=== PATIENT | male | born 1975 | race Caucasian/White ===

== ENCOUNTER → 2018-05-29 14:15 | Outpatient (CLI) | payer OTHER, SELFPAY ==
[2018-05-29 07:24] VITALS: BMI 36.6
== END ==
PROVIDERS: Referring Provider Physician Assistant Surgical; Visit Provider Physician Assistant Surgical
DX: J02.9 Acute pharyngitis, unspecified (principal)
CPT/HCPCS: 87081

== ENCOUNTER → 2019-05-04 | Outpatient (CLI) | payer OTHER, SELFPAY ==
[2018-07-08 07:02] VITALS: BMI 36.6
[2019-05-04 09:06] LABS: Bacteria 0 SEEN /hpf (None Seen); Mucous, Urine 0 SEEN /hpf (<or=2+); White Blood Cells 0 SEEN /hpf (0-5)
[2019-05-04 10:30] LABS: Absolute Neutrophil Count 3.8 X10^3/uL (2.0-7.7); Basophil# 0.07 X10^3/uL; Basophil% 0.9 % (0-1); Eosinophil# 0.32 X10^3/uL; Eosinophils% 4.2 % (0-5); Hematocrit 51.6 % (40-54); Hemoglobin 17.2 g/dL (13.0-16.5); Lymphocyte % 35.1 % (19-41); Mean Corp Hgb Conc 33.3 g/dL (32-36); Mean Corpuscular Hgb 29.6 pg (27.0-32.0); Mean Corpuscular Volume 88.7 fL (80-94); Mean Platelet Vol. 10.3 fl (6.2-12.0); Monocyte# 0.79 X10^3/uL; Monocyte% 10.3 % (0-10); NRBC Flagged by Analyzer 0 % (0-5); Neutrophil # 3.79 X10^3/uL (2.7-7.7); Neutrophil % 49.1 % (47-70); Platelet Count 228 K/mm3 (150-450); RBC Distribution Width CV 14.2 % (11.6-14.6); RBC Distribution Width SD 43.6 fl (35.1-43.9); Red Blood Count 5.82 M/mm3 (4.6-6.2); White Blood Count 7.7 K/mm3 (4.4-11.0)
[2019-05-04 10:35] LABS: Color, Urine Yellow (Yellow); Glucose, Dipstick Normal (Normal); Ketone-Dipstick Negative (Negative); Leukocyte Esterase-Dipstick Negative /ul (Negative); Nitrite-Dipstick Negative (Negative); Occult Blood-Urine 50 /ul (Negative); Protein-Dipstick 30 mg/dl (Negative); Specific Gravity, Urine 1.015 (1.002-1.030); Urine Bilirubin Dipstick Negative (Negative); Urine Clarity Sl. Cloudy (Clear); Urine Urobilinogen Normal (Normal); Urine pH 6.5 (5.0 - 8.0)
[2019-05-04 10:42] LABS: Red Blood Cells-Urine 0-5 SEEN /hpf (0-5); Squamous Epithelial Cells - UA 0-5 SEEN /hpf (0-5)
[2019-05-04 11:10] LABS: ALB/GLOB Ratio 1.2 RATIO (0.9-2.4); AST(SGOT) 26 U/L (15-37); Alanine Aminotransfer ALT/SGPT 57 U/L (16-61); Alkaline Phosphatase 111 U/L (45-117); Anion Gap 6 (5-15); BUN 18 mg/dL (7-18); BUN/Creat Ratio 14.8 RATIO (10-20); Calcium,Total 9.3 mg/dL (8.5-10.1); Chloride 109 mmol/L (98-107); Cholesterol 142 mg/dL (200); Creatinine, Serum 1.22 mg/dL (0.70-1.30); EST Glomerular Filtration Rate 69 mL/min (>60); Est Glom Filt Rate - Afr Amer 84 mL/min (>60); Globulin 3.3 g/dL (2.2-4.2); Glucose 80 mg/dL (74-106); High Density Lipoprotein 43 mg/dL; Potassium 4.5 mmol/L (3.5-5.1); Protein, Total 7.3 g/dL (6.4-8.2); Sodium Level 141 mmol/L (136-145); Thyroid Stim Hormone (TSH) 2.66 uIU/mL (0.358-3.74); Triglycerides 68 mg/dL; Very Low Density Lipoprotein 14 mg/dL (5-40)
[2019-05-05 14:20] LABS: Ferritin 107 ng/mL (26-388); Iron 86 ug/dL (65-175); Iron Binding Capacity,Total 334 ug/dL (250-450); PERCENT IRON SATURATION 25.7 % (15.0-55.0)
== END | disposition home or self-care (01) ==
LOC: MFPLAB 09:04
PROVIDERS: PCP Family Medicine; Referring Provider Family Medicine; Visit Provider Family Medicine
DX: Z00.00 Encounter for general adult medical examination without abnormal findings (principal); D75.1 Secondary polycythemia
CPT/HCPCS: 36415; 80053; 80061; 81001; 82728; 83540; 83550; 84443; 85025

== ENCOUNTER 2019-11-06 15:17 | Emergency (ER) | payer OTHER, SELFPAY ==
[2018-07-08 07:02] VITALS: BMI 36.6
[2019-11-06 15:18] VITALS: BP 187/95; PULSE 90; RESP 18; TEMP 36.8; O2SAT 96; BMI 38.0
--- NOTE | 2019-11-06 15:28 | ED.DCSUM_ITS ---
History of Present Illness Chief Complaint: Laceration Informant: Patient Onset: Today Current Severity: Mild Maximum Severity: Moderate Narrative: Patient presents with left hand laceration. [place] and cut his left index finger with a razor knife. He is right-hand dominant. He is not sure of his last tetanus update. Denies any other significant past medical history. Past Medical History - Allergies and Home Meds Allergies/Adverse Reactions: Allergies No Known Allergies Allergy (Unverified 11/06/19 15:20) Primary Care Physician: Dre Means MD [Primary Care Provider] - Past Medical History: None Lives: Spouse/ Significant Other Smoking Status: Never smoker Review of Systems General: Denies: Chills, Fever Eyes: Denies: Visual changes - bilaterally ENT: Denies: Bilateral ear pain Cardiovascular: Denies: Chest pain Respiratory: Denies: Dyspnea, Cough Gastrointestinal: Denies: Abdominal pain Musculoskeletal: Reports: Extremity Pain Skin: Reports: Wounds Neurological: Denies: Parasthesia Hematologic: Denies: Easy bruising, Easy bleeding Allergy: Denies: Uticaria Physical Exam Vital Signs/Narrative: Vital Signs Temp Pulse Resp BP Pulse Ox 11/06/19 15:18 98.2 F 90 18 187/95 H 96 Inital Vital Signs reviewed: Yes General: Well nourished, Well developed Head: Normocephalic ENT: Moist mucous membranes Cardiovascular: Regular rate, Regular rhythm Respiratory: No distress, CTA bilaterally Abdomen: Soft, Nontender Extremities: - - 2 cm laceration along the radial aspect of the index MCP joint. Full range of motion of all digits. Normal sensation distally. Neurological: Alert, Oriented x3, Normal Strength, Normal Sensation Psychological: Normal affect Diagnostic/Tx/Re-eval - Medical Decision Making Tetanus update is provided. 3 cc 1% lidocaine are used locally for anesthesia. Wound is cleansed and irrigated. 4 simple interrupted sutures of 5-0 nylon are placed with good approximation. Dressing is applied and wound care is discu ssed. Patient have sutures removed in 1 week. Procedures - Lacerations No standard instances Length: 0.79 in Depth: Sub Q Shape: Linear Prep: Crhis-[place] Laceration repair: Lidocaine, Local Number of Sutures/Dario: 4 Suture Information: Ethilon, Simple, 5-0 ED Disposition - Plan for ED Patient: Disposition: Home or Assisted Living Diagnosis: Laceration of left hand Instructions: ED Laceration Hand Referrals: Dre Means MD [Primary Care Provider] - 7 Days for suture removal
[2019-11-06] MEDS: Diphth,Pertuss(Acell),Tet Vac 0.5 ML Vial IM (15:39)
[2019-11-06 16:12] VITALS: BP 137/84; PULSE 72; RESP 16; O2SAT 99
== END 2019-11-06 16:15 | disposition home or self-care (01) ==
PROVIDERS: Emergency Provider Emergency Medicine; PCP Family Medicine
DX: S61.211A Laceration without foreign body of left index finger without damage to nail, initial encounter (principal); Z23 Encounter for immunization; W26.0XXA Contact with knife, initial encounter; Y93.89 Activity, other specified; Y92.79 Other farm location as the place of occurrence of the external cause; Y99.0 Civilian activity done for income or pay
CPT/HCPCS: 12001; 90471; 90715; 99284

== ENCOUNTER 2021-07-22 19:30 | Emergency (ER) | payer OTHER, SELFPAY ==
[2021-07-22 19:31] VITALS: BP 152/91; PULSE 82; RESP 18; TEMP 36.4; O2SAT 99; BMI 37.0
--- NOTE | 2021-07-22 20:23 | EKG12_ITS ---
Test Reason : ABD PAIN Blood Pressure : / mmHG Vent. Rate : 073 BPM Atrial Rate : 073 BPM P-R Int : 130 ms QRS Dur : 072 ms QT Int : 378 ms P-R-T Axes : 032 010 012 degrees QTc Int : 416 ms Normal sinus rhythm Normal ECG Confirmed by TAB JOHNS, ELOISA ([id number]), news editor EARL CABAN ([id number]) on 07/24/2021 7:18:37 AM Referred By: MICHELLE Confirmed By:ELOISA BARTH MD
--- NOTE | 2021-07-22 20:24 | EDS_ITS ---
HPI History of Present Illness Chief Complaint: Abd Pain Narrative Narrative: Patient presents with right upper quadrant and epigastric pain that started earlier this morning. He woke up with this pain. He has no fever chills he has decreased appetite but does not have any nausea or vomiting. No diarrhea or constipation. No lower abdominal pain. No flank pain. [facility] Home Medications NK 11/06/19 [History Last Taken Unknown] Allergy/AdvReac Type Severity Reaction Status Date / Time No Known Allergies Allergy Verified 07/22/21 19:31 Social History Smoking Status: Never smoker ROS ROS ED ROS Narrative Past medical history: Reviewed Medications: Reviewed Social history: Noncontributory Review of systems: All systems negative except as indicated General: No fever Eyes: No visual changes ENT: No upper airway congestion, normal voice Neck: No neck pain Cardiovascular: No chest pain Respiratory: No shortness of breath or cough Gastrointestinal: Abdominal pain as in HPI Genitourinary: No dysuria Musculoskeletal: Denies myalgias no difficulty with ambulation Skin: No rash Neurological: No memory loss, confusion or any focal weakness Psych: No recent behavioral changes Hematologic: No easy bleeding or easy bruising EXAM Physical Exam Narrative Exam Narrative: Physical exam General: Well nourished, Well developed, No Acute Distress Head: Normocephalic, Atraumatic Eyes: Conjunctiva not pale ENT: Moist mucous membranes Neck: Supple, Nontender, No lymphadenopathy Cardiovascular: Regular rate, Regular rhythm Respiratory: No distress, CTA bilaterally Abdomen: Soft, there is some right upper quadrant tenderness, he has a negative Barrera's. He has some epigastric tenderness. No guarding or rebound. No lower abdominal pain or any pain at McBurney's. Back: Nontender, Normal Inspection. Negative for: CVA tenderness Extremities: Nontender, No edema Skin: Normal color, No rash Neurological: Alert, Normal Strength, Normal Sensation Psychological: Normal affect Const Vital Signs: 07/22/21 19:31 Temperature 97.6 F L Temperature Source Temporal Pulse Rate 82 Respiratory Rate 18 Blood Pressure 152/91 H Blood Pressure Mean 111 Pulse Ox 99 Oxygen Delivery Method Room Air MDM MDM MDM Narrative Medical decision making narrative: Patient has some inflammation around the proximal colon. Unsure about the etiology of this but patient appears well, I will discharge with GI follow-up if anything changes he is to return Lab Data Labs: Laboratory Results - last 24 hr 07/22/21 07/22/21 20:25 20:25 WBC 9.9 RBC 5.71 Hgb 16.7 H Hct 50.6 MCV 88.6 MCH 29.2 MCHC 33.0 RDW Std Deviation 44.7 H RDW Coeff of Sylvie 13.8 Plt Count 238 MPV 9.9 Immature Gran % (Auto) 0.300 Neut % (Auto) 48.5 Lymph % (Auto) 36.2 [place] % (Auto) 9.3 Eos % (Auto) 4.8 Baso % (Auto) 0.9 Absolute Neuts (auto) 4.8 Absolute Lymphs (auto) 3.59 Nucleated RBC % 0 Sodium 140 Potassium 3.8 Chloride 109 H Carbon Dioxide 28.0 Anion Gap 3 L BUN 16 Creatinine 1.32 H Estim Creat Clear Calc 78.38 Est GFR (MDRD) Af Amer 76 Est GFR (MDRD) Non-Af 62 BUN/Creatinine Ratio 12.1 Glucose 90 Calcium 8.7 Total Bilirubin 0.30 Direct Bilirubin 0.13 AST 24 ALT 56 Alkaline Phosphatase 107 Total Protein 7.0 Albumin 3.4 Globulin 3.6 Lipase 110 Radiography Diagnostic Testing: Clinical Impression(s) from Imaging Studies Abdomen/Pelvis CT 07/22/21 20:24 IMPRESSION: Moderate inflammatory change anterior to the distal one half of the descending colon. Fatty infiltration of the liver. Probable sparing of fatty infiltration or less likely hemangioma 2 cm in diameter adjacent to the body of the gallbladder. Sigmoid diverticulosis. Electronically Signed: Rommel Reddy MD, ANNABEL at 21:10 EDT , Discharge Plan Triage Chief Complaint: Abd Pain ED Provider: Jensen Oden Dx/Rx/DC Orders Clinical Impression: Abdominal pain, Colitis Instructions: ED Understanding Colitis Prescriptions: No Action NK RF: 0 Primary Care Provider: Dre Means Referrals: Dre Means MD [Primary Care Provider] - Friend,JulesDO [STAFF PHYSICIAN] - 2 Days Disposition Disposition: Home, Self Care
--- NOTE | 2021-07-22 20:24 | CT_ITS ---
STUDY: CT ABDOMEN AND PELVIS WITHOUT CONTRAST REASON FOR EXAM: Male, 45 years old. abdominal pain RADIATION DOSAGE (If Supplied By Facility): CTDIvol = ( 19.86 ) mGy, DLP = ( 1190.81 ) mGycm TECHNIQUE: Transaxial images were obtained from the dome of the diaphragm to the symphysis pubis without oral contrast, and without intravenous contrast. Sagittal and coronal images were reconstructed. Individualized dose optimization techniques were used for this CT. COMPARISON: None. FINDINGS: The visualized lung bases demonstrate mild dependent atelectasis.. The visualized portions of the heart are within normal limits. Hyperdensity anterior to the body of the gallbladder within the liver. This measures 2 cm transverse. This could represent sparing of fatty infiltration. Other etiologies such as hemangioma would be an additional consideration. Normal gallbladder and extrahepatic biliary system. Normal spleen. Normal pancreas. Normal bilateral adrenal glands. Normal right kidney. Normal left kidney. Normal visualized stomach. Normal small intestine. Anterior to the distal one half of the ascending colon there is moderate pericolonic inflammatory change. There is no evidence of discrete abscess or fluid collection. The appendix is normal in appearance without evidence of mural thickening or periappendiceal inflammatory change. Sigmoid diverticulosis. Mild dependent atelectasis posterior basilar segments both lower lobes. There is mild sigmoid diverticulosis. There is no evidence of diverticulitis. Remainder of the colon is normal. The appendix is visualized and appears normal. Normal abdominal aorta. Normal inferior vena cava. Normal retroperitoneum. Normal urinary bladder. Dystrophic calcifications are seen within the inferior prostate. Normal abdominal wall. Moderate facet arthropathy bilaterally L4-S1. Probable bone island left femoral head [address]/Abdomen/Pelvis without Cont IMPRESSION: Moderate inflammatory change anterior to the distal one half of the descending colon. Fatty infiltration of the liver. Probable sparing of fatty infiltration or less likely hemangioma 2 cm in diameter adjacent to the body of the gallbladder. Sigmoid diverticulosis. Electronically Signed: Rommel Reddy MD, ANNABEL at 21:10 EDT ,
[2021-07-22 20:42] LABS: Absolute Lymphocyte Count 3.59 X10^3/uL (0.83-4.51); Absolute Neutrophil Count 4.8 X10^3/uL (2.0-7.7); Basophil# 0.09 X10^3/uL; Basophil% 0.9 % (0-1); Eosinophil# 0.48 X10^3/uL; Eosinophils% 4.8 % (0-5); Hematocrit 50.6 % (40-54); Hemoglobin 16.7 g/dL (13.0-16.5); Lymphocyte # 3.59 X10^3/ul (0.83-4.51); Lymphocyte % 36.2 % (19-41); Mean Corpuscular Hgb 29.2 pg (27.0-32.0); Mean Corpuscular Volume 88.6 fL (80-94); Mean Platelet Vol. 9.9 fl (6.2-12.0); Monocyte# 0.92 X10^3/uL; Monocyte% 9.3 % (0-10); NRBC Flagged by Analyzer 0 % (0-5); Neutrophil # 4.82 X10^3/uL (2.7-7.7); Neutrophil % 48.5 % (47-70); Platelet Count 238 K/mm3 (150-450); RBC Distribution Width CV 13.8 % (11.6-14.6); RBC Distribution Width SD 44.7 fl (35.1-43.9); Red Blood Count 5.71 M/mm3 (4.6-6.2); White Blood Count 9.9 K/mm3 (4.4-11.0)
[2021-07-22 20:59] LABS: Albumin, Serum 3.4 g/dL (3.2-5.0); BUN 16 mg/dL (7-18); BUN/Creat Ratio 12.1 RATIO (10-20); Calcium,Total 8.7 mg/dL (8.5-10.1); Creatinine, Serum 1.32 mg/dL (0.70-1.30); EST Glomerular Filtration Rate 62 mL/min (>60); Est Glom Filt Rate - Afr Amer 76 mL/min (>60); Estimated Creatinine Clearance 78.38 ml/min; Globulin 3.6 g/dL (2.2-4.2); Glucose 90 mg/dL (74-106); Lipase 110 U/L (73-393)
[2021-07-22 21:00] LABS: AST(SGOT) 24 U/L (15-37); Alanine Aminotransfer ALT/SGPT 56 U/L (16-61); Alkaline Phosphatase 107 U/L (45-117); Anion Gap 3 (5-15); Bilirubin, Direct 0.13 mg/dL (0.00-0.30); Chloride 109 mmol/L (98-107); Potassium 3.8 mmol/L (3.5-5.1); Sodium Level 140 mmol/L (136-145)
[2021-07-22 22:22] VITALS: BP 139/81; PULSE 79; RESP 16; O2SAT 97
== END 2021-07-22 22:24 | disposition home or self-care (01) ==
PROVIDERS: Emergency Provider Emergency Medicine; PCP Family Medicine; Visit Provider Emergency Medicine
DX: K52.9 Noninfective gastroenteritis and colitis, unspecified (principal)
CPT/HCPCS: 74176; 80048; 80076; 83690; 85025; 93005; 99282

== ENCOUNTER 2022-05-29 05:32 | Day surgery (SDC) | payer OTHER, SELFPAY ==
[2022-05-29 06:18] VITALS: BP 155/101; PULSE 78; RESP 16; TEMP 36.2; O2SAT 96; BMI 37.8
[2022-05-29] MEDS: Lactated Ringers 1,000 ML 15 ML IV (06:24)
--- NOTE | 2022-05-29 07:06 | PCM.HP.BLA ---
History and Physical Date of Admission: 05/29/22 Intake Vital Signs ? 07/22/2218:31 Height 6 ft Weight: 273 lb 9.498 oz BMI 37.0 BP 152/91 H Respiration 18 Pulse 82 Temp 97.6 F L Temp Source Temporal Pulse Oximetry (%) 99 Intake Visit Reasons:?Hernia Chief Complaint: hernia Is patient in pain?: No Allergies No Known Allergies Allergy (Verified 05/21/22 14:31) Medications NK? 11/06/19 [History Confirmed 05/21/22] PFSH Family History?(Updated 05/21/22 @ 14:28 by Mary Remy) Father HypertensionGrandmother DiabetesAunt Thyroid disorder Social History?(Updated 05/21/22 @ 14:28 by Mary Remy) Smoking Status:? Never smoker substance use type:? does not use HPI HPI HPI: Patient is a 46-year-old male here with umbilical hernia.? Patient reports that the umbilical hernia has been worsening and growing larger.? He denies any nausea or vomiting or fevers or chills. ROS General General: No weight change, appetite, fatigue, colon cancer, breast cancer or weakness HEENT HEENT: No difficulty swallowing, eye injury, eye surgery, swollen glands or hoarseness Endo Endocrine: No thyroid disease, diabetes mellitus, thyroid cancer, Hair loss, heat intolerance or cold intolerance Skin Skin: No rash or changing moles Musc Musculoskeletal: No back problems, arthritis, rheumatoid arthritis, gout or joint pain Cardio Cardiovascular: No murmur, pacemaker, heart disease, atrial fibrillation, high blood pressure, heart attack, heart stent, palpitations, shortness of breat with exertion or chest pain Psych Psychiatric: No depression, anxiety or hearing voices Resp Respiratory: No shortness of breath, No sleep apnea, No cough, No COPD, No asthma, No emphysema and No wheezing Gastro Gastrointestinal: Yes abdominal pain, No nausea or vomiting, No diarrhea, No constipation, No blood in stool, No acid reflux, No hemorrhoids, No ulcers, No gallbladder problem and No black,tarry stools Shubham Hematologic: No blood thinners, No blood disorders, No bleeding, No anemia and No blood clots Neuro Neurologic: No system reviewed and no additional complaints, except as documented, No as per HPI, No abnormal gait, No abnormal hearing, No abnormal movements, No abnormal speech, No behavioral changes, No burning sensations, No confusion, No convulsions, No disequilibrium, No dizziness, No localized weakness, No frequent falls, No headache(s), No lack of coordination, No loss of vision, No memory loss, No numbness, No other visual disturbances, No radicular pain, No restless legs, No sensory deficit, No syncope, No tingling, No tremor(s), No weakness and No other Exam Const General: cooperative Orientation: alert and oriented x3 HENMT Head: normal to inspection Neck Neck: normal visual inspection and full ROM Chest Chest palpation & inspection: normal inspection of the chest Resp Effort & Inspection: normal respiratory effort Auscultation: clear to auscultation bilaterally Cardio Rate: regular rate Rhythm: regular rhythm GI Inspection: non-distended Palpation: soft, hernia umbilical and nontender Skin General: no rashes or lesions noted Neuro General: patient alert and patient oriented x3 Extrem General: full ROM Psych Appearance: grossly normal Mental Status: mental status grossly normal Assessment and Plan Assessment and Plan (1) Umbilical hernia: ?Status:?Acute ?Qualifiers: ?Obstruction and gangrene presence:?without obstruction or gangrene? Qualified Code(s):?K42.9 - Umbilical hernia without obstruction or gangrene ?Plan: Patient has a small umbilical hernia.? It does contain fat and it is reducible.? I discussed hernia repair with the patient.? I discussed the risks including modality to bleeding, infection, injury to underlying organs.? I discussed mesh placement.? I will place mesh if the hernia defect is over 1 cm in diameter.? I discussed postoperative care and restrictions.? Patient understands and is willing to proceed with hernia repair. Dax Aquino MD Pager: [facility] [address] [place] [address], [address] [place] [address] Office: I have seen and reexamined the patient and reviewed the H&P. there are no changes
[2022-05-29] MEDS: Bupivacaine 0.25% 30 ML Vial (07:38)
--- NOTE | 2022-05-29 08:01 | PCM.OPRPT ---
Report of Operation Date of Procedure: 05/29/22 Pre-Operative Diagnosis: Umbilical hernia Post-Operative Diagnosis: Umbilical hernia Surgery/Procedure Performed:: Umbilical hernia repair less than 1 cm Specimen's removed: None Description of Procedure: Patient was brought to the operating room and general anesthesia was induced. The abdomen was prepped and draped in usual sterile fashion. Thus curvilinear incision was marked inferior to the umbilicus and then injected with local anesthetic. Incision was made with a scalpel and deepened to the subcutaneous tissue. The umbilical stalk was sharply removed from the hernia sac. The hernia was dissected free and reduced. The defect was less than 1 cm. Defect was closed with interrupted 0 Nurolon sutures. The cavity was irrigated and suctioned dry. The umbilical stalk was sutured to the fascia using 3-0 Vicryl suture. The incision was closed with interrupted 3-0 Vicryl sutures and a running 4-0 Monocryl. Steri-Strips and bandage were applied the patient was awoken and taken to PACU in stable condition and tolerated the procedure well. No mesh was used during this case due to the size of the hernia. Admit VTE Documentation VTE Mechan Device Prophylaxis: SCD's
--- NOTE | 2022-05-29 08:03 | DCINST_ITS ---
Discharge Instructions Procedure Hernia Diet Discharge Diet: Light diet - advance as tolerated Activity Discharge Activity: May Not Drive (for 2-3 days or while taking narcotic pain meds.) and May Shower (with the bandage in place 1-2 days after surgery.) Lifting Restrictions: 20 pounds for 4 weeks. Additional Activity Instructions:: Climbing stairs is fine, walking is encouraged. Sitting in bed may be uncomfortable. Sitting up using your lateral muscles (sitting up sideways) is usually more comfortable. Do not drive, work heavy equipment of sign legal documents for 24 hours. Pain medications may cause nausea, you should typically eat light foods as you take your pain medications. Pain medications may also cause constipation. If you have difficulty with this, discuss with your doctor. Alternate ibuprofen and Tylenol for pain control. Oxycodone for breakthrough pain. Ice if needed. Dressing / Incision Call your doctor if your incision/area has: Continuous Slow Oozing, Sudden Increased Bleeding, Increased Pain/ Swelling, Increased Redness and Foul Smelling Discharge Call your doctor if you observe: Fever of 101 or Higher Suture Line Care: Avoid Pulling/Pushing and Avoid Pinching/Bending Remove Dressing in: 2 days (Remove clear bandages in 2 days, remove Steri-Strips in 7 to 10 days.) Cleanse incision/area with: Soap & Water Follow Up Care Please Follow Up With: Dax Aquino MD When: Please call to schedule 2 week follow up appointment. [phone] Test Results: Test results from this visit will be discussed in further detail at your follow- up appointment, if applicable. Discharge Plan Admission Attending Provider: Dax Aquino Primary Care Provider: Care Physician,Thi Primary Discharge Orders/Prescriptions Prescriptions: New oxycodone 5 mg tablet 5 - 10 mg PO Q6H PRN (Reason: pain) 5 Days Qty: 20 0RF Referrals / Follow Up: Care PhysicianThi Primary [Primary Care Provider] - Disposition Disposition (needs filled in before D/C Order can be placed): Home, Self Care
[2022-05-29 08:05] VITALS: BP 127/85; BP 155/99; PULSE 80; RESP 16; TEMP 36.2; O2SAT 94
[2022-05-29 08:15] VITALS: BP 129/87; BP 155/99; PULSE 81; RESP 16; O2SAT 92
[2022-05-29 08:30] VITALS: BP 118/83; BP 155/99; PULSE 76; RESP 18; TEMP 36.7; O2SAT 96
[2022-05-29 09:29] VITALS: BP 126/81; BP 155/99; PULSE 79; RESP 16; O2SAT 98
[2022-05-29 09:55] VITALS: BP 155/99
== END 2022-05-29 09:58 | disposition home or self-care (01) ==
LOC: SDC 05:32 → AC 05:34
PROVIDERS: Visit Provider Surgery
PROC: (CPT 49591; principal; 2022-05-29 07:15)
DX: K42.9 Umbilical hernia without obstruction or gangrene (principal)
CPT/HCPCS: 49591; 00832; J7120; J2405

== ENCOUNTER → 2023-04-25 | Outpatient (CLI) | payer OTHER, SELFPAY | END | disposition home or self-care (01) | LOC: SL 08:19 | PROVIDERS: Referring Provider Nurse Practitioner Acute Care; Visit Provider Nurse Practitioner Acute Care | DX: G47.10 Hypersomnia, unspecified (principal) | CPT/HCPCS: 95806 ==

== ENCOUNTER → 2023-05-14 | Outpatient (CLI) | payer OTHER, SELFPAY | END | disposition home or self-care (01) | LOC: SL 13:48 | PROVIDERS: Referring Provider Nurse Practitioner Acute Care; Visit Provider Nurse Practitioner Acute Care | DX: G47.33 Obstructive sleep apnea (adult) (pediatric) (principal); G47.10 Hypersomnia, unspecified | CPT/HCPCS: 95806 ==

== ENCOUNTER → 2023-05-23 | Outpatient (CLI) | payer OTHER, SELFPAY ==
[2023-05-23 17:52] LABS: Absolute Lymphocyte Count 3.17 X10^3/uL (0.83-4.51); Basophil# 0.09 X10^3/uL; Basophil% 0.8 % (0-1); Eosinophil# 0.55 X10^3/uL; Hematocrit 54.4 % (40-54); Hemoglobin 17.6 g/dL (13.0-16.5); Lymphocyte # 3.17 X10^3/ul (0.83-4.51); Lymphocyte % 28.8 % (19-41); Mean Corp Hgb Conc 32.4 g/dL (32-36); Mean Corpuscular Hgb 27.8 pg (27.0-32.0); Mean Corpuscular Volume 86.1 fL (80-94); Mean Platelet Vol. 10.3 fl (6.2-12.0); Monocyte% 10.9 % (0-10); NRBC Flagged by Analyzer 0 % (0-5); Neutrophil # 5.96 X10^3/uL (2.7-7.7); Neutrophil % 54.2 % (47-70); Platelet Count 258 K/mm3 (150-450); RBC Distribution Width CV 14.4 % (11.6-14.6); RBC Distribution Width SD 43.9 fl (35.1-43.9); Red Blood Count 6.32 M/mm3 (4.6-6.2)
[2023-05-23 18:39] LABS: ALB/GLOB Ratio 0.9 RATIO (0.9-2.4); AST(SGOT) 27 U/L (15-37); Alanine Aminotransfer ALT/SGPT 47 U/L (16-61); Albumin, Serum 3.6 g/dL (3.2-5.0); Alkaline Phosphatase 101 U/L (45-117); Anion Gap 6 (5-15); BUN 14 mg/dL (7-18); BUN/Creat Ratio 11.1 RATIO (10-20); Calcium,Total 8.6 mg/dL (8.5-10.1); Chloride 105 mmol/L (98-107); Cholesterol 121 mg/dL (200); Creatinine, Serum 1.26 mg/dL (0.70-1.30); EST Glomerular Filtration Rate 65 mL/min (>60); Est Glom Filt Rate - Afr Amer 79 mL/min (>60); Globulin 3.8 g/dL (2.2-4.2); Glucose 79 mg/dL (74-106); High Density Lipoprotein 35 mg/dL; Potassium 4.1 mmol/L (3.5-5.1); Protein, Total 7.4 g/dL (6.4-8.2); Sodium Level 136 mmol/L (136-145); Thyroid Stim Hormone (TSH) 3.66 uIU/mL (0.358-3.74); Triglycerides 96 mg/dL; Very Low Density Lipoprotein 19 mg/dL (5-40)
== END | disposition home or self-care (01) ==
LOC: MFPLAB 16:55
PROVIDERS: Visit Provider Family Medicine
DX: E66.9 Obesity, unspecified (principal)
CPT/HCPCS: 36415; 80053; 80061; 84443; 85025

== ENCOUNTER → 2023-05-26 | Outpatient (CLI) | payer OTHER, SELFPAY ==
--- NOTE | 2023-05-26 10:45 | RAD_ITS ---
STUDY: X-RAY - RIGHT KNEE REASON FOR EXAM: Male, 47 years old. knee crepitus TECHNIQUE: 3 view(s) of the knee. COMPARISON: None. FINDINGS: Normal visualized distal femur. Normal visualized proximal tibia and fibula. Normal proximal tibiofibular articulation. There is mild degenerative arthrosis of the medial femorotibial compartment. There is mild degenerative arthrosis of the lateral femorotibial compartment. There is mild degenerative arthrosis of the patellofemoral articulation. There is a soft tissue prominence in the suprapatellar region suggesting a small volume joint effusion. The soft tissue structures are unremarkable. RAD/Knee 3 Views IMPRESSION: Degenerative arthrosis. Electronically Signed: Michael Rodriguez MD at 22:26 EDT ,
== END | disposition home or self-care (01) ==
PROVIDERS: PCP Family Medicine; Referring Provider Family Medicine; Visit Provider Family Medicine
DX: Z00.00 Encounter for general adult medical examination without abnormal findings (principal); M23.8X9 Other internal derangements of unspecified knee
CPT/HCPCS: 73562

== ENCOUNTER → 2023-06-10 | Outpatient (CLI) | payer OTHER, SELFPAY ==
--- NOTE | 2023-06-10 13:44 | ECHOD_ITS ---
Reason For Study: NEAL Procedure This was a 2D Doppler, Color Flow transthoracic echocardiogram. Exam performed in department. Left Ventricle Normal LV size. The estimated ejection fraction is 60 %. No evidence for diastolic dysfunction. No regional wall motion abnormalities noted. Right Ventricle Normal RV size. Normal systolic function. Atria Normal left atrium. Normal right atrium. No doppler evidence for ASD. Mitral Valve There is no mitral valve stenosis. No mitral valve insufficiency. Tricuspid Valve There is no tricuspid stenosis. Trivial tricuspid valve insufficiency. Unable to estimate RV systolic pressure due to insufficient tricuspid regurgitant envelope. Aortic Valve Trisinus/trileaflet aortic valve. There is no aortic stenosis. No aortic valve insufficiency. Pulmonic Valve There is no pulmonic valvular stenosis. No pulmonic valve insufficiency. Great Vessels Normal aortic root. Pericardium/Pleural No pericardial effusion. MMode/2D Measurements & Calculations LVIDd: 4.9 cm IVSd: 1.1 cm Ao root diam: 3.7 cm LVIDs: 3.1 cm LVPWd: 1.0 cm LA dimension: 3.7 cm RVDd: 3.7 cm FS: 35.3 % LAV(MOD-bp): 51.8 ml LVAd ap4: 30.4 cm2 SV(MOD-sp4): 50.3 ml LAV(MOD-bp) Indexed: 21.4 ml/m2 LVLd ap4: 9.2 cm LAV(MOD-sp2): 49.5 ml EDV(MOD-sp4): 82.2 ml LAV(MOD-sp4): 45.8 ml EDV(sp4-el): 84.8 ml LVAs ap4: 16.5 cm2 LVLs ap4: 7.6 cm ESV(MOD-sp4): 31.9 ml ESV(sp4-el): 30.4 ml EF(MOD-sp4): 61.2 % EF(sp4-el): 64.1 % SV(sp4-el): 54.4 ml LA A4 area: 18.2 cm2 RA A4 area: 15.2 cm2 TAPSE: 2.5 cm Time Measurements MV dec time: 0.17 sec Doppler Measurements & Calculations MV E max fahad: 73.2 cm/sec Lat Peak E' Fahad: 11.2 cm/sec Med Peak E' Fahad: 12.5 cm/sec MV A max fahad: 67.2 cm/sec E/E' lat: 6.5 E/E' med: 5.8 MV E/A: 1.1 MV V2 max: 80.3 cm/sec MV P1/2t max fahad: 78.0 cm/sec Ao V2 max: 136.8 cm/sec MV max P.6 mmHg MV P1/2t: 61.1 msec Ao max P.5 mmHg MV V2 mean: 49.3 cm/sec MV dec slope: 374.2 cm/sec2 Ao V2 mean: 94.4 cm/sec MV mean P.1 mmHg Ao mean P.1 mmHg MV V2 VTI: 22.3 cm MVA(P1/2t): 3.6 cm2 Ao V2 VTI: 26.0 cm AV (velocity ratio): 0.92 LV V1 max: 135.6 cm/sec PA V2 max: 100.1 cm/sec TR max fahad: 299.6 cm/sec LV V1 max P.4 mmHg TR max P.9 mmHg LV V1 mean P.0 mmHg LV V1 mean: 94.1 cm/sec LV V1 VTI: 24.0 cm ECHO/Echo Complete Interpretation Summary The estimated ejection fraction is 60 %. No evidence for diastolic dysfunction. Ordering Physician: Theo Davila Referring Physician: Dre Means Performed By: Willis Addison RCS
== END | disposition home or self-care (01) ==
LOC: CVS 13:43
PROVIDERS: PCP Family Medicine; Referring Provider Internal Medicine Cardiovascular Disease; Visit Provider Internal Medicine Cardiovascular Disease
DX: R06.09 Other forms of dyspnea (principal); Z82.41 Family history of sudden cardiac death
CPT/HCPCS: 93306

== ENCOUNTER → 2023-09-16 | Outpatient (CLI) | payer OTHER, SELFPAY ==
[2023-09-16 12:18] LABS: Absolute Lymphocyte Count 3.43 X10^3/uL (0.83-4.51); Absolute Neutrophil Count 5.2 X10^3/uL (2.0-7.7); Basophil# 0.11 X10^3/uL; Basophil% 1.1 % (0-1); Eosinophil# 0.29 X10^3/uL; Eosinophils% 2.9 % (0-5); Hematocrit 50.9 % (40-54); Hemoglobin 16.3 g/dL (13.0-16.5); Lymphocyte # 3.43 X10^3/ul (0.83-4.51); Lymphocyte % 34.3 % (19-41); Mean Corpuscular Volume 87.3 fL (80-94); Mean Platelet Vol. 10.4 fl (6.2-12.0); Monocyte# 0.89 X10^3/uL; Monocyte% 8.9 % (0-10); NRBC Flagged by Analyzer 0 % (0-5); Neutrophil # 5.23 X10^3/uL (2.7-7.7); Neutrophil % 52.2 % (47-70); Platelet Count 252 K/mm3 (150-450); RBC Distribution Width CV 14.6 % (11.6-14.6); RBC Distribution Width SD 46.7 fl (35.1-43.9); Red Blood Count 5.83 M/mm3 (4.6-6.2)
[2023-09-16 12:54] LABS: ALB/GLOB Ratio 1.1 RATIO (0.9-2.4); AST(SGOT) 23 U/L (15-37); Alanine Aminotransfer ALT/SGPT 53 U/L (16-61); Albumin, Serum 3.4 g/dL (3.2-5.0); Alkaline Phosphatase 110 U/L (45-117); Anion Gap 7 (5-15); BUN 16 mg/dL (7-18); BUN/Creat Ratio 15.2 RATIO (10-20); Calcium,Total 8.6 mg/dL (8.5-10.1); Chloride 107 mmol/L (98-107); Cholesterol 110 mg/dL (200); Creatinine, Serum 1.05 mg/dL (0.70-1.30); EST Glomerular Filtration Rate 81 mL/min (>60); Est Glom Filt Rate - Afr Amer 98 mL/min (>60); Globulin 3.2 g/dL (2.2-4.2); Glucose 95 mg/dL (74-106); High Density Lipoprotein 40 mg/dL; Protein, Total 6.6 g/dL (6.4-8.2); Sodium Level 136 mmol/L (136-145); Triglycerides 177 mg/dL; Very Low Density Lipoprotein 35 mg/dL (5-40)
== END | disposition home or self-care (01) ==
LOC: MFPLAB 09:31
PROVIDERS: PCP Family Medicine; Visit Provider Family Medicine
DX: D75.1 Secondary polycythemia (principal); E66.9 Obesity, unspecified
CPT/HCPCS: 36415; 80053; 80061; 85025